=== PATIENT | female | born 1975 | race African-American/Black ===

== ENCOUNTER 2019-03-01 12:38 | Emergency (ER) | payer SELFPAY ==
--- NOTE | 2019-03-01 13:45 | RAD REPORT ---
EXAM DESCRIPTION: RAD - Hand Left 3 View - 03/01/2019 1:31 pm CLINICAL HISTORY: Left hand pain primarily in the thumb COMPARISON: None. FINDINGS: No fracture, dislocation or periosteal reaction noted. No foreign body or other soft tissu e abnormality. IMPRESSION: Negative left hand examination.
--- NOTE | 2019-03-01 13:47 | ER ---
Nurse's Notes [facility] Name: Yo Szymanski Age: 43 yrs Sex: Female : 1975 Arrival Date: 03/01/2019 Time: 12:39 Bed 13 Private MD: Diagnosis: Cellulitis of back [any part except buttock] Presentation: 03/01 12:43 Presenting complaint: Patient states: "I think I broke my left thumb and I also have a aa5 couple of bites I think one on my right side and the other one on my left leg". Pt also c/o fever and nausea. Transition of care: patient was not received from another setting of care. Onset of symptoms was January 2019. Risk Assessment: Do you want to hurt yourself or someone else? Patient reports no desire to harm self or others. Initial Sepsis Screen: Does the patient meet any 2 criteria? No. Patient's initial sepsis screen is negative. Does the patient have a suspected source of infection? No. Patient's initial sepsis screen is negative. Care prior to arrival: None. 12:43 Method Of Arrival: Ambulatory aa5 12:43 Acuity: OBI 3 aa5 Triage Assessment: 13:09 General: Appears in no apparent distress. uncomfortable, Behavior is cooperative, bp appropriate for age, anxious. Pain: Complains of pain in right hand. EENT: No deficits noted. Neuro: Level of Consciousness is awake, alert, obeys commands, Oriented to person, place, time, situation, Appropriate for age. Cardiovascular: No deficits noted. Respiratory: Airway is patent Respiratory effort is even, unlabored, Respiratory pattern is regular, symmetrical. GI: No signs and/or symptoms were reported involving the gastrointestinal system. : No signs and/or symptoms were reported regarding the genitourinary system. Derm: No deficits noted. Musculoskeletal: No deficits noted. Injury Description: Bruise sustained to right hand. 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 - Social history:: Smoking status: Patient/guardian denies using tobacco, Patient/guardian denies using alcohol, street drugs, The patient lives with family. - Ebola Screening: : No symptoms or risks identified at this time. - Family history:: not pertinent. Screenin:12 Abuse screen: Denies threats or abuse. Denies injuries from another. Nutritional bp screening: No deficits noted. Tuberculosis screening: No symptoms or risk factors identified. Fall Risk None identified. Assessment: 13:12 General: SEE TRIAGE NOTE. bp 13:56 Reassessment: PT D/C HOME AMBULATORY, DX WITH CELLULITIS. bp Vital Signs: 12:44 BP 184 / 91; Pulse 72; Resp 18 S; Temp 98.4(TE); Pulse Ox 99% on R/A; Weight 108.86 kg aa5 (R); Height 5 ft. 2 in. (157.48 cm) (R); Pain 8/10; 13:56 BP 176 / 89; Pulse 75; Resp 16; Temp 98.5; Pulse Ox 99% ; bp 12:44 Body Mass Index 43.90 (108.86 kg, 157.48 cm) aa5 ED Course: 12:39 Patient arrived in ED. aa5 12:43 Arm band placed on. aa5 12:44 Triage completed. aa5 12:48 Deshawn Arriaga, RN is Primary Nurse. bp 13:02 Tessy Holliday MD is Attending Physician. ma2 13:12 Patient has correct armband on for positive identification. Bed in low position. Call bp light in reach. Side rails up X2. 13:30 Hand Left 3 View XRAY In Process Unspecified. EDMS 13:56 No provider procedures requiring assistance completed. Patient did not have IV access bp during this emergency room visit. Administered Medications: No medications were administered Outcome: 13:47 Discharge ordered by . ma2 13:56 Discharged to home ambulatory. bp 13:56 Condition: stable 13:56 Discharge instructions given to patient, Instructed on discharge instructions, follow up and referral plans. medication usage, Demonstrated understanding of instructions, follow-up care, medications, Prescriptions given X 2. 13:58 Patient left the ED. bp Signatures: Dispatcher [employer] EDMS Lulu Salinas RN RN aa5 Deshawn Arriaga RN RN bp Alzahri, Mohammad, MD MD ma2 Corrections: (The following items were deleted from the chart) 12:47 12:44 Pulse 72bpm; Resp 18bpm; Spontaneous; Pulse Ox 99% RA; Temp 98.4F Temporal; aa5 108.86 kg Reported; Height 5 ft. 2 in. Reported; BMI: 43.9; Pain 8/10; aa5
--- NOTE | 2019-03-01 13:48 | EDPHYS ---
Physician Documentation [facility] Name: Yo Szymanski Age: 43 yrs Sex: Female : 1975 Arrival Date: 03/01/2019 Time: 12:39 Bed 13 Private MD: ED Physician Tessy Holliday HPI: 03/01 13:15 This 43 yrs old Black Female presents to ER via Ambulatory with complaints of Thumb ma2 Injury, Abscess. 13:15 The patient presents with cellulitis of the back. Onset: The symptoms/episode ma2 began/occurred gradually, 2 day(s) ago. Possible cause(s): unknown. Associated signs and symptoms: Pertinent positives: erythema, Pertinent negatives: drainage, headache, shortness of breath, swelling, vomiting. Severity of symptoms: At their worst the symptoms were mild, in the emergency department the symptoms are unchanged. The patient has not experienced similar symptoms in the past. 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 - Social history:: Smoking status: Patient/guardian denies using tobacco, Patient/guardian denies using alcohol, street drugs, The patient lives with family. - Ebola Screening: : No symptoms or risks identified at this time. - Family history:: not pertinent. ROS: 13:15 Constitutional: Negative for fever, chills, and weight loss. ma2 13:15 Skin: Positive for cellulitis, lesions, Negative for discoloration, ulceration. 13:15 All other systems are negative. Exam: 13:15 Constitutional: This is a well developed, well nourished patient who is awake, alert, ma2 and in no acute distress. Head/Face: Normocephalic, atraumatic. ENT: Nares patent. No nasal discharge, no septal abnormalities noted. Tympanic membranes are normal and external auditory canals are clear. Oropharynx with no redness, swelling, or masses, exudates, or evidence of obstruction, uvula midline. Mucous membranes moist. Chest/axilla: Normal chest wall appearance and motion. Nontender with no deformity. No lesions are appreciated. Cardiovascular: Regular rate and rhythm with a normal S1 and S2. No gallops, murmurs, or rubs. Normal PMI, no JVD. No pulse deficits. Respiratory: Lungs have equal breath sounds bilaterally, clear to auscultation and percussion. No rales, rhonchi or wheezes noted. No increased work of breathing, no retractions or nasal flaring. Abdomen/GI: Soft, non-tender, with normal bowel sounds. No distension or tympany. No guarding or rebound. No evidence of tenderness throughout. MS/ Extremity: Pulses equal, no cyanosis. Neurovascular intact. Full, normal range of motion. Neuro: Awake and alert, GCS 15, oriented to person, place, time, and situation. Cranial nerves II-XII grossly intact. Motor strength 5/5 in all extremities. Sensory grossly intact. Cerebellar exam normal. Normal gait. 13:15 Skin: Appearance: abscess, not appreciated, cellulitis, that is moderate, irregular, well demarcated, on the back, induration, that is mild is noted. Vital Signs: 12:44 BP 184 / 91; Pulse 72; Resp 18 S; Temp 98.4(TE); Pulse Ox 99% on R/A; Weight 108.86 kg aa5 (R); Height 5 ft. 2 in. (157.48 cm) (R); Pain 8/10; 13:56 BP 176 / 89; Pulse 75; Resp 16; Temp 98.5; Pulse Ox 99% ; bp 12:44 Body Mass Index 43.90 (108.86 kg, 157.48 cm) aa5 MDM: 13:02 Patient medically screened. ma2 13:15 Differential diagnosis: cellulitis, insect bite. Data reviewed: vital signs, nurses ma2 notes. Counseling: I had a detailed discussion with the patient and/or guardian regarding: the historical points, exam findings, and any diagnostic results supporting the discharge/admit diagnosis, the presence of at least one elevated blood pressure reading (>120/80) during this emergency department visit, the need for outpatient follow up. 03/01 13:11 Order name: Hand Left 3 View XRAY; Complete Time: 13:46 ma2 Administered Medications: No medications were administered Disposition: 03/01/19 13:47 Discharged to Home. Impression: Cellulitis of back [any part except buttock]. - Condition is Stable. - Discharge Instructions: Cellulitis, Adult. - Prescriptions for Tylenol- Codeine #3 300-30 mg Oral Tablet - take 2 tablet by ORAL route every 6 hours As needed; 30 tablet. Bactrim DS 800- 160 mg Oral Tablet - take 1 tablet by ORAL route every 12 hours for 10 days; 20 tablet. - Medication Reconciliation Form, Thank You Letter, Antibiotic Education, Prescription Opioid Use form. - Follow up: Private Physician; When: Tomorrow; Reason: Continuance of care. Signatures: Dispatcher [employer] EDMS Lulu Salinas RN RN aa5 Deshawn Arriaga RN RN bp Tessy Holliday MD MD ma2 Corrections: (The following items were deleted from the chart) 13:58 13:47 03/01/2019 13:47 Discharged to Home. Impression: Cellulitis of back [any part bp except buttock]. Condition is Stable. Discharge Instructions: Cellulitis, Adult. Prescriptions for Tylenol-Codeine #3 300-30 mg Oral Tablet - take 2 tablet by ORAL route every 6 hours As needed; 30 tablet, Bactrim DS 800-160 mg Oral Tablet - take 1 tablet by ORAL route every 12 hours for 10 days; 20 tablet. and Forms are Medication Reconciliation Form, Thank You Letter, Antibiotic Education, Prescription Opioid Use. Follow up: Private Physician; When: Tomorrow; Reason: Continuance of care. ma2
== END 2019-03-01 13:58 | disposition home or self-care (01) ==
LOC: ER 12:38
DX: L03.312 Cellulitis of back [any part except buttock and flank] (principal); I10 Essential (primary) hypertension; Z88.0 Allergy status to penicillin
CPT/HCPCS: 99283